=== PATIENT | female | born 1975 ===

== ENCOUNTER 2017-01-11 13:30 | Emergency (ER) | payer MEDICAID ==
[2017-01-11 13:31] VITALS: BMI 29.0
[2017-01-11 14:10] VITALS: BP 154/62; PULSE 84; RESP 18; TEMP 98.1; O2SAT 99
--- NOTE | 2017-01-11 14:20 | ED PDOC ---
HPI: CCC, URI, Sore Throat Time Seen by Provider: 01/11/17 14:10 Chief Complaint (Nursing): Cough, Cold, Congestion Chief Complaint (Provider): URI History Per: Patient, Family Additional Complaint(s): 41 yo female, no PMH, presents to ED with complaints of sore throat, body aches , dry cough, chills. Temp 100 yesterday. NO meds today No flu shot this year. Past Medical History Reviewed: Nursing Documentation, Vital Signs Vital Signs: Last Vital Signs Temp 98.1 F 01/11/17 14:05 Pulse 84 01/11/17 14:05 Resp 18 01/11/17 14:05 BP 154/62 H 01/11/17 14:05 Pulse Ox 99 01/11/17 14:21 - Medical History PMH: No Chronic Diseases - Surgical History Surgical History: Cholecystectomy - Family History Family History: States: Unknown Family Hx - Living Arrangements Living Arrangements: With Family - Social History Current smoker - smoking cessation education provided: No Alcohol: None Drugs: Denies - Home Medications Home Medications: Ambulatory Orders Medication Instructions Recorded Meclizine HCl [Antivert] 25 mg PO TID #15 tablet 11/03/15 Triamcinolone 0.25% [Triamcinolone 15 gm EXT DAILY #0 oin 04/11/16 0.25% Oint] predniSONE [predniSONE Tab] 60 mg PO DAILY #9 tab 04/11/16 Cyclobenzaprine [Cyclobenzaprine 10 mg PO BID #15 tab 09/07/16 HCl] Oseltamivir [Tamiflu] 75 mg PO BID 5 Days 01/11/17 Promethazine HCl/Codeine 5 ml PO HS #80 ml 01/11/17 [Prometh-Codein 6.25-10 mg/5 ml] - Allergies Allergies/Adverse Reactions: Allergies Allergy/AdvReac Type Severity Reaction Status Date / Time acetaminophen [From Percocet] Allergy RASH Verified 11/03/15 13:55 ketorolac tromethamine Allergy RASH Verified 11/03/15 13:55 [From Toradol] morphine Allergy RASH Verified 11/03/15 13:55 oxycodone HCl [From Percocet] Allergy RASH Verified 11/03/15 13:55 Review of Systems ROS Statement: Except As Marked, All Systems Reviewed And Found Negative Constitutional: Positive for: Fever, Weakness ENT: Positive for: Nose Congestion Respiratory: Positive for: Cough Physical Exam - Reviewed Nursing Documentation Reviewed: Yes Vital Signs Reviewed: Yes - Physical Exam Appears: Positive for: Well, Non-toxic, No Acute Distress Head Exam: Positive for: ATRAUMATIC, NORMAL INSPECTION, NORMOCEPHALIC Skin: Positive for: Normal Color, Warm, DRY Eye Exam: Positive for: EOMI, Normal appearance, PERRL ENT: Positive for: Normal ENT Inspection Neck: Positive for: Normal, Painless ROM Cardiovascular/Chest: Positive for: Regular Rate, Rhythm Respiratory: Positive for: CNT, Normal Breath Sounds Gastrointestinal/Abdominal: Positive for: Normal Exam, Bowel Sounds, Soft Back: Positive for: Normal Inspection Extremity: Positive for: Normal ROM Neurologic/Psych: Positive for: Alert, Oriented - ECG O2 Sat by Pulse Oximetry: 99 Medical Decision Making Medical Decision Making: Strep (-) Flu (+) Pt declined CXR started on Tamiflu and promethazine Disposition - Clinical Impression Clinical Impression: Influenza - Patient ED Disposition Is Patient to be Admitted: No - Disposition Disposition: Routine/Home Disposition Time: 15:28 Condition: GOOD Prescriptions: Promethazine HCl/Codeine [Prometh-Codein 6.25-10 mg/5 ml] 5 ml PO HS #80 ml Oseltamivir [Tamiflu] 75 mg PO BID 5 Days Instructions: Influenza (ED) - POA Present On Arrival: None
--- NOTE | 2017-01-13 08:27 | RAD ---
Chest PA and lateral radiograph Indication: Fever, cough for 2 days Comparison: None available. Findings: The cardiomediastinal silhouette appears within normal limits of size. No focal consolidation, significant pleural effusion, or definite pneumothorax evident. Please note that chest x-ray has limited sensitivity for the detection of pulmonary masses. Degenerative changes of the spine. Impression: No focal consolidation, significant pleural effusion, or definite pneumothorax evident.
== END 2017-01-11 15:21 | disposition home or self-care (01) ==
LOC: H.ER 13:30
DX: J11.1 Influenza due to unidentified influenza virus with other respiratory manifestations (principal); R05 Cough; R50.9 Fever, unspecified; J02.9 Acute pharyngitis, unspecified

== ENCOUNTER 2017-12-23 07:48 | Emergency (ER) | payer MEDICAID ==
--- NOTE | 2017-12-23 08:24 | ED PDOC ---
Upper Extremity Pain/Injury Time Seen by Provider: 12/23/17 08:18 Chief Complaint (Nursing): Upper Extremity Problem/Injury History Per: Patient Onset/Duration Of Symptoms: Days (2) Current Symptoms Are (Timing): Still Present Quality: Aching Severity: Mild Pain Scale Rating Of: 2 Exacerbating Factor(s): Nothing Additional Complaint(s): Bilat forearm pain since yesterday. No trauma. Pain not worse with movement. No fever. Has not taken any analgesics. Past Medical History Vital Signs: Last Vital Signs Temp 97 F L 12/23/17 07:54 Pulse 103 H 12/23/17 07:54 Resp BP 149/94 H 12/23/17 07:54 Pulse Ox 96 12/23/17 07:54 - Medical History PMH: Depression - Surgical History Surgical History: Cholecystectomy - Family History Family History: States: Unknown Family Hx - Home Medications Home Medications: Ambulatory Orders Medication Instructions Recorded Meclizine HCl [Antivert] 25 mg PO TID #15 tablet 11/03/15 Triamcinolone 0.25% [Triamcinolone 15 gm EXT DAILY #0 oin 04/11/16 0.25% Oint] predniSONE [predniSONE Tab] 60 mg PO DAILY #9 tab 04/11/16 Cyclobenzaprine [Cyclobenzaprine 10 mg PO BID #15 tab 09/07/16 HCl] Oseltamivir [Tamiflu] 75 mg PO BID 5 Days cap 01/11/17 Promethazine HCl/Codeine 5 ml PO HS #80 ml 01/11/17 [Prometh-Codein 6.25-10 mg/5 ml] traMADol [Ultram] 50 mg PO Q8 #10 tab 12/23/17 - Allergies Allergies/Adverse Reactions: Allergies Allergy/AdvReac Type Severity Reaction Status Date / Time acetaminophen [From Percocet] Allergy RASH Verified 11/03/15 13:55 ketorolac tromethamine Allergy RASH Verified 11/03/15 13:55 [From Toradol] morphine Allergy RASH Verified 11/03/15 13:55 oxycodone HCl [From Percocet] Allergy RASH Verified 11/03/15 13:55 Review of Systems Constitutional: Negative for: Fever Musculoskeletal: Positive for: Arm Pain Neurological: Negative for: Weakness, Numbness Physical Exam - Physical Exam Appears: Positive for: Non-toxic, No Acute Distress Skin: Positive for: Normal Color (No ecchymosis), Warm Pulses-Radial (L): 2+ Pulses-Radial (R): 2+ Extremity: Positive for: Normal ROM. Negative for: Deformity (Forearms bilat), Swelling Neurologic/Psych: Positive for: Alert, Oriented. Negative for: Motor/Sensory Deficits - ECG O2 Sat by Pulse Oximetry: 96 Disposition - Clinical Impression Clinical Impression: Musculoskeletal arm pain - Patient ED Disposition Is Patient to be Admitted: No - Disposition Referrals: FAMILY PROVIDER,NO [Primary Care Provider] - [facility] [Outside] Disposition: Routine/Home Disposition Time: 09:08 Condition: FAIR Prescriptions: traMADol [Ultram] 50 mg PO Q8 #10 tab Instructions: Muscle and Bone Pain (DC) Forms: [facility] (Arabic)
--- NOTE | 2017-12-23 09:17 | RAD ---
PROCEDURE: Bilateral forearm HISTORY: pain COMPARISON: None available TECHNIQUE: AP and lateral radiographs of the right and left forearm FINDINGS: There is no evidence of fracture. There is no lytic or blastic osseous lesion. IMPRESSION: Unremarkable examination.
[2017-12-23 12:29] VITALS: BP 149/94; PULSE 103; TEMP 97; O2SAT 96; BMI 27.4
== END 2017-12-23 09:24 | disposition home or self-care (01) ==
LOC: H.ER 07:48 → SUPCPDRO 07:48 → H.ER 09:24
DX: M79.602 Pain in left arm (principal); M79.601 Pain in right arm; F32.9 Major depressive disorder, single episode, unspecified; Z88.5 Allergy status to narcotic agent